=== PATIENT | female | born 1995 | race Caucasian/White ===

== ENCOUNTER 2019-04-13 15:27 | Outpatient (CLI) | payer BC ==
[~2019-04-13] VITALS: Ht 165.1 cm; Wt 66.4 kg
[2019-04-13] MEDS ORDERED: CYCL5TAB PO (15:39)
[2019-04-13 16:04] VITALS: BP 111/67
[2019-04-13 16:06] LABS: MICROSCOPIC INDICATED
[2019-04-13] MEDS: D5%-LACTATED RINGERS 1,000 ML IV SCH ×2 (16:37→18:45)
[2019-04-13 16:46] LABS: AMPHETAMINE SCREEN, URINE Negative (Negative); BARBITURATE SCREEN, URINE Negative (Negative); BENZODIAZEPINE SCREEN, URINE Negative (Negative); CANNABINOID SCREEN, URINE Negative (Negative); COCAINE SCREEN, URINE Negative (Negative); METHADONE SCREEN, URINE Negative (Negative); OPIATE SCREEN, URINE Negative (Negative)
[2019-04-13] MEDS: LACTATED RINGERS 1,000 ML IV SCH ×2 (17:16→19:58)
[2019-04-13] MEDS ORDERED: TERBUTALINE 1 MG/ML, 1ML IV STA (19:04)
[2019-04-13] MEDS ORDERED: TERBUTALINE 1 MG/ML, 1ML ONE (19:06)
[2019-04-13 20:06] LABS: MICROSCOPIC NOT IND
[2019-04-13 20:15] LABS: CULTURE INDICATED? NO
== END 2019-04-13 21:00 | disposition home or self-care (01) ==
LOC: LDOP 15:27
PROVIDERS: ATTEND Obstetrics & Gynecology
DX: O26.893 Other specified pregnancy related conditions, third trimester (principal); O60.03 Preterm labor without delivery, third trimester; R10.9 Unspecified abdominal pain; Z3A.31 31 weeks gestation of pregnancy
CPT/HCPCS: 59025; 80307; 81001; 81003; 87081; 87147; 96361; 96374; 99201; J3105; J7120; J7121; 96360; 96372; G0463

== ENCOUNTER 2019-06-04 23:35 | Outpatient (CLI) | payer BC ==
[~2019-06-04 23:35] MED LIST: CYCL5TAB PO
[2019-06-05] MEDS ORDERED: ZOLPIDEM 5MG TABLET ONE (01:21)
[2019-06-05] MEDS ORDERED: ZOLPIDEM 5MG TABLET PO SCH (21:00)
[2019-06-06] MEDS ORDERED: IBUP-1222 PO (13:11)
== END 2019-06-05 01:35 | disposition home or self-care (01) ==
LOC: LDOP 23:35
PROVIDERS: ATTEND Obstetrics & Gynecology
DX: O26.893 Other specified pregnancy related conditions, third trimester (principal); R10.9 Unspecified abdominal pain; Z3A.39 39 weeks gestation of pregnancy
CPT/HCPCS: 59025; 99211; G0463

== ENCOUNTER 2019-06-05 03:21 | Inpatient (IN) | payer BC ==
[~2019-06-05] VITALS: Ht 165.1 cm; Wt 70.0 kg
[2019-06-05] MEDS ORDERED: LIDOCAINE 1%, 20ML ONE (03:39)
[2019-06-05] MEDS ORDERED: MISOPROSTOL 200 MCG TABLET ONE (03:39)
[2019-06-05] MEDS ORDERED: OXYTOCIN 30U/ 0.9% NaCL 500ML 500 ML ONE ×2 (03:39→11:47)
[2019-06-05] MEDS ORDERED: D5%-LACTATED RINGERS 1,000 ML IV SCH (03:44)
[2019-06-05] MEDS ORDERED: OXYTOCIN 30U/ 0.9% NaCL 500ML 500 ML IV ONE (03:44)
[2019-06-05] MEDS ORDERED: AMPICILLIN 2 GM in SODIUM CHLORIDE 0.9% 100 ML IVPB STA (03:44)
[2019-06-05] MEDS ORDERED: LACTATED RINGERS 1,000 ML IV SCH ×2 (03:44→03:52)
[2019-06-05] MEDS ORDERED: FENTANYL PF 100 MCG/2ML ONE (03:52)
[2019-06-05] MEDS ORDERED: FENTANYL/BUPIV./NS/PF 250 ML EPIDCONT SCH (03:52)
[2019-06-05] MEDS ORDERED: FENTANYL/BUPIV./NS/PF 250 ML EPIDCONT ONE (03:54)
[2019-06-05] MEDS ORDERED: ONDANSETRON 2MG/ML, 2ML IVPush PRN (04:00)
[2019-06-05] MEDS ORDERED: FENTANYL PF 100 MCG/2ML IV PRN (04:00)
[2019-06-05] MEDS ORDERED: TERBUTALINE 1 MG/ML, 1ML IVPush PRN (04:00)
[2019-06-05] MEDS ORDERED: LACTATED RINGERS 1,000 ML IVBOLUS PRN ×2 (04:00→05:30)
[2019-06-05] MEDS ORDERED: FENTANYL PF 100 MCG/2ML IVPush PRN (04:00)
[2019-06-05] MEDS ORDERED: EPHEDRINE 50 MG/ML, 1ML IVPush PRN ×2 (04:00→05:30)
[2019-06-05] MEDS ORDERED: TERBUTALINE 1 MG/ML, 1ML SQ PRN (04:00)
[2019-06-05] MEDS ORDERED: AMPICILLIN 1 GM in SODIUM CHLORIDE 0.9% 50 ML IVPB SCH (04:00)
[2019-06-05 04:08] LABS: BASOPHILS # (AUTO) 0.08 x10^3/uL (0-0.1); BASOPHILS % (AUTO) 1 % (0-1); EOSINOPHILS # (AUTO) 0.01 x10^3/uL (0-0.4); EOSINOPHILS % (AUTO) 0 % (1-7); LYMPHOCYTES # (AUTO) 1.97 x10^3/uL (1-3.4); LYMPHOCYTES % (AUTO) 13 % (22-44); MD NO; MEAN CORPUSCULAR HEMOGLOBIN 32.6 pg (27.0-34.8); MEAN CORPUSCULAR HGB CONC 33.7 g/dL (32.4-35.8); MEAN CORPUSCULAR VOLUME 96.9 fL (80-100); MEAN PLATELET VOLUME 9.1 fL (7.4-10.4); MONOCYTES % (AUTO) 4 % (2-9); NEUTROPHILS # (AUTO) 12.88 x10^3/uL (1.8-6.8); NEUTROPHILS % (AUTO) 83 % (42-75); PLATELET COUNT 231 x10^3/uL (130-400); RED BLOOD COUNT 3.97 x10^6/uL (3.82-5.3); RED CELL DISTRIBUTION WIDTH 12.7 % (9.6-15.2)
[2019-06-05 04:20] VITALS: BP 120/87
[2019-06-05] MEDS ORDERED: ONDANSETRON 2MG/ML, 2ML ONE (04:39)
[2019-06-05] MEDS: LACTATED RINGERS 1,000 ML IV SCH ×3 (05:18→21:18)
[2019-06-05] MEDS: FENTANYL/BUPIV./NS/PF 250 ML EPIDCONT SCH (05:18)
[2019-06-05] MEDS ORDERED: NALOXONE 0.4 MG/ML, 1ML IVPush PRN (05:30)
[2019-06-05] MEDS ORDERED: OXYTOCIN 30U/ 0.9% NaCL 500ML 500 ML IV PRN (07:54)
[2019-06-05] MEDS ORDERED: ACETAMINOPHEN 325 MG TABLET ONE (08:48)
[2019-06-05] MEDS ORDERED: ACETAMINOPHEN 325 MG TABLET PO PRN ×2 (09:00→11:00)
[2019-06-05] MEDS ORDERED: METHYLERGONOVINE 0.2 MG/ML IM PRN (11:00)
[2019-06-05] MEDS ORDERED: ONDANSETRON 2MG/ML, 2ML IV PRN (11:00)
[2019-06-05] MEDS ORDERED: SIMETHICONE 80 MG CHEW TAB PO PRN (11:00)
[2019-06-05] MEDS ORDERED: MISOPROSTOL 200 MCG TABLET PR PRN (11:00)
[2019-06-05] MEDS ORDERED: OXYcodone/APAP 5/325MG TABLET PO PRN (11:00)
[2019-06-05] MEDS: OXYTOCIN 30U/ 0.9% NaCL 500ML 500 ML IV SCH ×2 (12:08→20:41)
[2019-06-05 12:10] VITALS: BP 103/57
[2019-06-05 16:15] VITALS: BP 121/80
[2019-06-05 18:38] LABS: MEAN CORPUSCULAR HEMOGLOBIN 31.7 pg (27.0-34.8); MEAN CORPUSCULAR HGB CONC 33.1 g/dL (32.4-35.8); MEAN PLATELET VOLUME 8.7 fL (7.4-10.4); PLATELET COUNT 203 x10^3/uL (130-400); RED BLOOD COUNT 3.59 x10^6/uL (3.82-5.3); RED CELL DISTRIBUTION WIDTH 12.5 % (9.6-15.2)
[2019-06-05] MEDS: DOCUSATE 100 MG CAPSULE PO PRN (18:47)
[2019-06-05] MEDS: IBUPROFEN 600 MG TABLET PO PRN (18:47)
[2019-06-05 18:58] LABS: MD YES
[2019-06-05 18:59] LABS: BANDS%(MANUAL) 4 % (0-7); LYMPH#(MANUAL) 2.28 x10^3/uL (1-3.4); LYMPHS% (MANUAL) 13 % (22-44); MONOS#(MANUAL) 0.88 x10^3/uL (0.3-2.7); MONOS% (MANUAL) 5 % (2-9); SEGS% (MANUAL) 78 % (42-75)
[2019-06-05 19:00] LABS: <PLATELET ESTIMATE> ADEQUATE; <PLT MORPHOLOGY> NORMAL PLT MORPH; <RBC MORPHOLOGY> NORMAL
[2019-06-05 19:45] VITALS: BP 112/76
[2019-06-06] VITALS: BP 119/72
[2019-06-06] MEDS: FENTANYL/BUPIV./NS/PF 250 ML EPIDCONT SCH (02:08)
[2019-06-06 04:30] VITALS: BP 114/73
[2019-06-06] MEDS: LACTATED RINGERS 1,000 ML IV SCH (05:18)
[2019-06-06] MEDS: OXYTOCIN 30U/ 0.9% NaCL 500ML 500 ML IV SCH (06:41)
[2019-06-06] MEDS: IBUPROFEN 600 MG TABLET PO PRN (07:27)
[2019-06-06] MEDS: DOCUSATE 100 MG CAPSULE PO PRN (07:27)
[2019-06-06 07:30] VITALS: BP 119/78
[2019-06-06] MEDS ORDERED: PRENATAL VIT/IRON/FA 1 EACH TABLET PO SCH (09:00)
[2019-06-06] MEDS ORDERED: IBUP-1222 PO (13:11)
== END 2019-06-06 17:37 | disposition home or self-care (01) | DRG 807 ==
LOC: LDOP 03:21 → LDIP 03:48 → 2NW 12:04
PROVIDERS: ADMIT Obstetrics & Gynecology; ATTEND Obstetrics & Gynecology
PROC: 10E0XZZ Delivery of Products of Conception, External Approach (ICD-10-PCS; principal; 2019-06-05)
PROC: 0HQ9XZZ Repair Perineum Skin, External Approach (ICD-10-PCS; 2019-06-05)
PROC: 3E0R3BZ Introduction of Anesthetic Agent into Spinal Canal, Percutaneous Approach (ICD-10-PCS; 2019-06-05)
PROC: 00HU33Z Insertion of Infusion Device into Spinal Canal, Percutaneous Approach (ICD-10-PCS; 2019-06-05)
DX: O99.824 Streptococcus B carrier state complicating childbirth (principal); Z37.0 Single live birth; Z3A.39 39 weeks gestation of pregnancy; O70.0 First degree perineal laceration during delivery
CPT/HCPCS: 36415; J7121; 85025; 86850; 86900; G0378; J0290; J2405; J3010; J2590; J7120